=== PATIENT | female | born 1945 | race Caucasian/White ===

== ENCOUNTER 2016-08-22 13:01 | Observation (INO) | payer MEDICARE, MEDICAID ==
[~2016-08-22] VITALS: Ht 162.6 cm; Wt 55.0 kg
[~2016-08-22 13:01] MED LIST: ADVAIR DISK1 INH; ARIPIPRAZOLE5 MG PO; BAYER ASA325 MG PO; BUSPAR10 MG PO; CLONAZEPAM1 MG PO; CYMBALTA60 MG PO; ENLYTE PO; FIORICET PO; FLEXERIL PO; GABAPENTIN300 MG PO; GLUCOPHAGE500 MG PO; HYDROCHLOROT12.5 M1 PO; LISINOP/HCTZ1 TAB PO; LORTAB 10-325 M1 TAB PO; LORTAB 5/3255 MG PO; LOTRISONE CREAM15 GM EX; LYRICA150 MG PO; NAPROSYN500 MG PO; OXYCOD-APAP1 TAB PO; PENTOXIFYLLI400 MG PO; PRILOSEC40 MG PO; PRINIVIL5 MG PO; PROVENTIL HFA INH; REQUIP4 MG PO; RESTORIL15 MG PO; SINGULAIR PO; TRAMADOL HCL50 MG PO; ULTRAM50 M1 PO; VESICARE5 MG PO; ZOCOR20 MG PO; [UNRECOGNIZED DRUG - CODE] PO
--- NOTE | 2016-08-22 13:03 | NUR ---
PT TO ROOM FO RTREATMENT IN STABLE CONDITION
[2016-08-22 13:50] LABS: HEMATOCRIT 39.4 % (37.0-47.0); HEMOGLOBIN 12.3 g/dl (12.0-16.0); IMMATURE GRANULOCYTES 0.4 % (0.0-1.0); MEAN CELL VOLUME 86.2 fL CALC (80.0-100.0); MEAN CORPUSCULAR HGB 26.9 pG CALC (26.0-32.0); MEAN CORPUSCULAR HGB CONC 31.2 g/L CALC (32.0-36.0); NEUT# 5.09 thou/uL (2.00-7.15); RED BLOOD COUNT 4.57 mill/uL (4.20-5.60); RED CELL DISTRI WIDTH 20.6 % (11.5-15.5)
--- NOTE | 2016-08-22 14:00 | NUR ---
PT RESTING ON THE STRETCHER WITH NO COMPLAINTS AT THIS ITME. PT WITH EQUAL AND NONLABORED RESP.
[2016-08-22 14:01] LABS: ALBUMIN 2.8 g/dL (3.2-5.0); ALKALINE PHOSPHATASE 137 u/l (38-126); ANION GAP 13 (6-22 (CALC)); BILIRUBIN, TOTAL 0.9 mg/dL (0.0-1.4); BUN 10 mg/dL (8-23); BUN/CREATININE RATIO 12 (12-20 (CALC)); CALCIUM 8.5 mg/dL (8.4-10.2); CARBON DIOXIDE 27 mmol/l (22-30); CHLORIDE 101 mmol/l (95-108); CREATININE 0.8 mg/dL (0.5-1.0); GFR > 60 ML/MIN (>=60 (CALC)); GFR FOR AFR.AMER. > 60 ML/MIN (>=60 (CALC)); GLUCOSE 109 mg/dL (82-115); POTASSIUM 3.7 mmol/l (3.5-5.1); SGOT/AST 28 u/l (9-36); SGPT/ALT 32 u/l (11-66); SODIUM 137 mmol/l (137-146); TOTAL PROTEIN 5.9 g/dL (6.3-8.2)
[2016-08-22 14:14] LABS: MYOGLOBIN 39 ng/mL (0 - 62)
--- NOTE | 2016-08-22 14:50 | NUR ---
IN ROOM DISCUSSING CLINICAL FINDINGS WITH PT. PT AGREES TO BE ADMITTED
[2016-08-22] MEDS ORDERED: ASPIRIN 8181 MG PO (15:16)
--- NOTE | 2016-08-22 15:43 | NUR ---
REPORT GIVEN TO MYKEL DALAL
--- NOTE | 2016-08-22 16:00 | NUR ---
IV ESTABLISHED. IVF INFUSING AND IV ABX INITIATED.
--- NOTE | 2016-08-22 16:12 | NUR ---
PT ARRIVED TO FLOOR VIA STRETCHER ACCOMPANIED BY KATLIN KIM. PT DENIES PAIN. AMBULATES INDEPENDENTLY. NO SOB NOTED. PT ORIENTED TO ROOM AND EQUIPMENT. HÉCTOR EDGAR APPLIED. TELEMETRY UNIT IN PLACE. READING OF SR 70 FROM [facility] IN ED. IS PROVIDED TO PT. 2000ML INCENTIVE VOLUME ACHIEVED, GOAL OF 2500 ML SET. PLAN OF CARE DISCUSSED. REPORTING OF CONCERNS ENCOURAGED. CALL LIGHT REVIEWED AND IN REACH. PT STATES UNDERSTANDING OF INFORMATION.
--- NOTE | 2016-08-22 16:20 | NUR ---
PT TRANSFERRED TO [facility] IN STABLE CONDITION VIA STRETCHER.
[2016-08-22 16:24] VITALS: BP 117/66
[2016-08-22 19:00] VITALS: BP 124/74
--- NOTE | 2016-08-22 19:30 | NUR ---
PATIENT RESTING IN BED AT THIS TIME. PATIENT IS AWAKE ALERT AND ORIENTEDX3. PATIENT WITH HEP LOCK TO RIGHT AC-SITE APPEARS HEALTHY AT THIS TIME. PATIENT UP TO THE BR TO VOID AND STATES THAT SHE HAD LOOSE STOOL AT HOME BEFORE COMING IN TODAY. SAFETY PRECAUTIONS REINFORCED. CALL LIGHT IN REACH. WILL CONT TO MONITOR.
--- NOTE | 2016-08-22 21:00 | NUR ---
PATIENT MEDICATED FOR PAIN WITH ULTRAM ORDERED, FOR SLEEP WITH SONATA 5MG PO, AND FOR ANXIETY WITH KLONOPIN 1MG PO. HOT PACKS GIVEN FOR UPPER BACK PAIN. CALL LIGHT IN REACH. WILL CONT TO MONITOR.
[2016-08-22 23:41] VITALS: BP 118/61
--- NOTE | 2016-08-23 | NUR ---
PATIENT RESTING IN BED AT THIS TIME-WATCHING TV AND ASKING FOR JUICE AND SNACKS. NO COMPLAINTS AT THIS TIME. CALL LIGHT IN REACH. WILL CONT TO MONITOR
[2016-08-23 03:13] VITALS: BP 137/73
--- NOTE | 2016-08-23 03:51 | NUR ---
APPEARS SLEEPING AT THIS TIME. CALL LIGHT IN REACH. WILL CONT TO MONITOR.
--- NOTE | 2016-08-23 07:00 | NUR ---
REPORT RECIEVED FROM KATLIN WYNN; PT SITTING UP IN BED; NO S/S OF DISTRESS NOTED; PT DENIES ANY PAIN AT THIS TIME; CALL LIGHTS WITHIN REACH; WILL CONTINUE TO MONITOR
[2016-08-23 08:29] VITALS: BP 141/60
--- NOTE | 2016-08-23 12:00 | NUR ---
PT AMB IN HALLS WITH STEADY GAIT; NO S/S OF DISTRESS NOTED; PT DENIES ANY PAIN AT THIS TIME; PT ENCOURAGED TO CALL FOR ANY ASSISTANCE NEEDED; TELE IN PLACE; WILL CONTINUE TO MONITOR
[2016-08-23 12:30] VITALS: BP 147/72
[2016-08-23 12:53] LABS: C-REACTIVE PROTEIN 1.1 mg/dL (0-0.9)
[2016-08-23 17:17] VITALS: BP 146/78
[2016-08-23 19:04] VITALS: BP 146/61
--- NOTE | 2016-08-23 19:24 | NUR ---
Discharge instructions given. Patient verbalizes understanding of same. Discharged in stable condition via Ambulatory to Home with family. All belongings sent with pt.
== END 2016-08-23 19:25 | disposition home or self-care (01) ==
LOC: ENPENDDIS → ED 13:01 → ED-I 15:00 → ED 15:22 → MS2 15:23
PROVIDERS: Emergency Medicine; ADMIT Internal Medicine; ATTEND Internal Medicine
DX: R07.89 Other chest pain (principal); R13.10 Dysphagia, unspecified; R63.4 Abnormal weight loss; E11.40 Type 2 diabetes mellitus with diabetic neuropathy, unspecified; E78.5 Hyperlipidemia, unspecified; G25.81 Restless legs syndrome; M19.90 Unspecified osteoarthritis, unspecified site; F41.9 Anxiety disorder, unspecified; F31.9 Bipolar disorder, unspecified; R11.0 Nausea; R06.02 Shortness of breath; R14.0 Abdominal distension (gaseous); R42 Dizziness and giddiness; Z87.891 Personal history of nicotine dependence

== ENCOUNTER 2017-02-06 13:42 | Emergency (ER) | payer MEDICARE, MEDICAID ==
[~2017-02-06] VITALS: Ht 165.1 cm; Wt 52.0 kg
[~2017-02-06 13:42] MED LIST changes: +ASPIRIN 8181 MG PO
[2017-02-06] MEDS ORDERED: PRILOSEC20 MG PO (15:28)
[2017-02-06] MEDS ORDERED: OXYCODO-APAP1 TA2 PO (15:30)
[2017-02-06] MEDS ORDERED: PERCOCET 10/31 COMBO PO (16:28)
[2017-02-06 16:36] VITALS: BP 139/71
== END 2017-02-06 16:50 | disposition home or self-care (01) ==
LOC: ED 13:42
DX: S40.012A Contusion of left shoulder, initial encounter (principal); M25.512 Pain in left shoulder; W01.0XXA Fall on same level from slipping, tripping and stumbling without subsequent striking against object, initial encounter; Y93.89 Activity, other specified; Y92.009 Unspecified place in unspecified non-institutional (private) residence as the place of occurrence of the external cause; Y99.9 Unspecified external cause status

== ENCOUNTER 2017-02-17 07:31 | Inpatient (IN) | payer MEDICARE, MEDICAID ==
[~2017-02-17] VITALS: Ht 165.1 cm; Wt 48.6 kg
[~2017-02-17 07:31] MED LIST changes: +OXYCODO-APAP1 TA2 PO; +PERCOCET 10/31 COMBO PO; +PRILOSEC20 MG PO
--- NOTE | 2017-02-17 07:35 | NUR ---
PT TO ROOM 12 VIA EMS STRETCHER.
[2017-02-17 08:20] LABS: HEMATOCRIT 37.8 % (37.0-47.0); HEMOGLOBIN 12.4 g/dl (12.0-16.0); IMMATURE GRANULOCYTES 1.6 % (0.0-1.0); MEAN CELL VOLUME 98.2 fL CALC (80.0-100.0); MEAN CORPUSCULAR HGB 32.2 pG CALC (26.0-32.0); MEAN CORPUSCULAR HGB CONC 32.8 g/L CALC (32.0-36.0); NEUT# 8.91 thou/uL (2.00-7.15); RED BLOOD COUNT 3.85 mill/uL (4.20-5.60); RED CELL DISTRI WIDTH 15.9 % (11.5-15.5)
--- NOTE | 2017-02-17 08:30 | NUR ---
PT REPOSITIONS SELF ON STRETCHER. O2 PLACED BY RT. 2L/M VIA NC. SATS 100%
[2017-02-17 08:32] LABS: INTERNATIONAL NORMALIZED RATIO 1.1 RATIO (0.7-1.3); PROTHROMBIN TIME 11.8 SECONDS (9.0-12.5)
[2017-02-17 08:35] LABS: ANION GAP 11 (6-22 (CALC)); BUN 7 mg/dL (8-23); BUN/CREATININE RATIO 13 (12-20 (CALC)); CALCIUM 8.5 mg/dL (8.4-10.2); CARBON DIOXIDE 27 mmol/l (22-30); CHLORIDE 102 mmol/l (95-108); CREATININE 0.5 mg/dL (0.5-1.0); GFR > 60 ML/MIN (>=60 (CALC)); GFR FOR AFR.AMER. > 60 ML/MIN (>=60 (CALC)); GLUCOSE 117 mg/dL (82-115); POTASSIUM 3.3 mmol/l (3.5-5.1); SODIUM 137 mmol/l (137-146)
[2017-02-17 08:44] LABS: INFLUENZA A NONE DETECTED (NONE DETECT); INFLUENZA B NONE DETECTED (NONE DETECT)
--- NOTE | 2017-02-17 09:12 | NUR ---
SBAR PRINTED TO FLOOR
--- NOTE | 2017-02-17 09:34 | NUR ---
REPORT CALLED TO SHAYNA NURSE ON [facility].
--- NOTE | 2017-02-17 09:47 | NUR ---
PT ARRIVED FROM ER VIA STRETCHER ACCOMPANIED BY STAFF. IV SITE IS FREE FROM REDNESS OR EDEMA. TELE MONITOR IN PLACE.
--- NOTE | 2017-02-17 09:49 | NUR ---
PT TO MEDSURG VIA STRETCHER ON IV FLUIDS O2 2L/M VIA NC. SITE HEALTHY.
[2017-02-17 10:16] VITALS: BP 106/61
--- NOTE | 2017-02-17 10:30 | NUR ---
ASSESSMENT IS COMPLETED: BREATH SOUNDS ARE DIMINSHED AND CLEAR. O2 @ 2LITERS WITH NC. IV SITE IS FREE FROM REDNESS OR EDEMA. TELE MONITOR IN PLACE. ABD IS DISTENDED AND SOFT. PT IS WANTING TO EAT AND HAVE COFFEE.
--- NOTE | 2017-02-17 12:04 | NUR ---
Vancomycin consult Age: 71 years Weight: 48.6 kg Height: 165.1 cm Gender: Female SCR: 1 mg/dl (0.5 mg/dl rounded up) Dosing weight: 48.6 kg IBW: 57.00 kg CRCL (ml/min): 40.7 Ray (hr-1): 0.038 Half-life (hrs): 18.24 Vd (liters): 34.02 (factor: 0.7 L/kg) Vancomycin 1000 mg Q24H to produce a predicted peak of 47 mcg/ml and a predicted trough of 19 mcg/ml based on (Population-based pharmacokinetic analysis).
[2017-02-17 12:27] VITALS: BP 100/59
--- NOTE | 2017-02-17 12:30 | NUR ---
PT WENT TO HAVE CT SCAN COMPLETED: TOLERATED WELL. IV SITE IS FREE FROM REDNESS OR EDEMA. CONTINUE TO OSBERVE AND MONITOR.
--- NOTE | 2017-02-17 13:15 | NUR ---
PT IS VISITING WITH FAMILY NO DISTRESS NOTED. IV SITE IS FREE FROM REDNESS OR EDEMA.
[2017-02-17 15:10] VITALS: BP 80/50
--- NOTE | 2017-02-17 15:27 | NUR ---
PT BP WAS LOW AND WAS TAKEN MANUALLY WELL. NURSE WAS NOTIFIED.
--- NOTE | 2017-02-17 17:00 | NUR ---
PT IS RELAXING IN BED HAS RESTLESS LEG , NO DISTRESS NOTED.IV SITE IS FREE FROM REDNESS OR EDEMA. CONTINUE TO OBSERVE AND MONITOR.
[2017-02-17 19:20] VITALS: BP 87/51
--- NOTE | 2017-02-17 20:00 | NUR ---
PT SITTING UP IN BED WATCHING TV. PT IS ALERT AND ORIENTED X3. PERRLA. RESP ARE EVEN AND UNALBORED. LUNGS ARE DIMINSHED IN THE BASES. TELE IN PLACE. HR REGULAR. PULSES PALPABLE THROUGHOUT. NO EDEMA NOTED. BS ACTIVE. #22 LFA NS @100ML/HR INFUSING.NO REDNESS OR EDEMA NOTED AT SITE. WILL CONTINUE TO MONITOR.
--- NOTE | 2017-02-18 | NUR ---
PT SITTING UP ON SIDE OF BED. RESP ARE EVEN AND UNLABORED. NO CHANGE IN PT STATUS. WILL CONTINUE TO MONITOR
[2017-02-18 00:25] VITALS: BP 82/51
[2017-02-18 04:00] VITALS: BP 92/51
--- NOTE | 2017-02-18 04:45 | NUR ---
PT SITTING UP IN BED WATCHING TV. RESP ARE EVEN AND UNLABORED. NO CHANGE IN PT STATUS. WILL CONTINUE TO MONITOR
[2017-02-18 06:06] LABS: HEMATOCRIT 34.5 % (37.0-47.0); IMMATURE GRANULOCYTES 2.5 % (0.0-1.0); MEAN CELL VOLUME 100.9 fL CALC (80.0-100.0); MEAN CORPUSCULAR HGB 32.2 pG CALC (26.0-32.0); MEAN CORPUSCULAR HGB CONC 31.9 g/L CALC (32.0-36.0); NEUT# 6.83 thou/uL (2.00-7.15); RED BLOOD COUNT 3.42 mill/uL (4.20-5.60); RED CELL DISTRI WIDTH 15.9 % (11.5-15.5)
[2017-02-18 06:21] LABS: ANION GAP 11 (6-22 (CALC)); BUN 4 mg/dL (8-23); BUN/CREATININE RATIO 8 (12-20 (CALC)); CALCIUM 7.9 mg/dL (8.4-10.2); CARBON DIOXIDE 25 mmol/l (22-30); CHLORIDE 108 mmol/l (95-108); CREATININE 0.6 mg/dL (0.5-1.0); GFR > 60 ML/MIN (>=60 (CALC)); GFR FOR AFR.AMER. > 60 ML/MIN (>=60 (CALC)); GLUCOSE 76 mg/dL (82-115); POTASSIUM 3.8 mmol/l (3.5-5.1); SODIUM 140 mmol/l (137-146)
--- NOTE | 2017-02-18 07:00 | NUR ---
REPORT RECIEVED FROM KATLIN OLIVERA. PT ASLEEP ON ENTRY. NO SIGNS OF DISTRESS. RESP EVEN AND UNLABORED. IV SIGHT PATENT. TELE IN PLACE. SAFETY PRECAUTIONS IN PLACE. CALL LIGHT WITHIN REACH. WILL CONTINUE TO MONITOR.
[2017-02-18 09:10] VITALS: BP 111/69
[2017-02-18 11:28] VITALS: BP 98/63
[2017-02-18] MEDS ORDERED: ROPINIROLE4 MG PO (13:11)
[2017-02-18] MEDS ORDERED: TEMAZEPAM30 MG PO (13:11)
[2017-02-18] MEDS ORDERED: MUCUS RELIEF1200 MG PO (13:13)
[2017-02-18] MEDS ORDERED: PROAIR HFA108 MCG/AC IN (13:15)
[2017-02-18] MEDS ORDERED: LYRICA150 MG PO (13:15)
[2017-02-18] MEDS ORDERED: CLONAZEPAM2 MG PO (13:17)
--- NOTE | 2017-02-18 14:45 | NUR ---
PT RESTING IN BED WITH FAMILY MEMBERS AT BEDSIDE. TELE IN PLACE. IV PATENT AND SITE HAS NO INFLAMMATION OR REDNESS. WILL CONTINUE TO MONITOR. CALL LIGHT WITHIN REACH.
[2017-02-18 15:20] VITALS: BP 103/61
[2017-02-18 19:00] VITALS: BP 170/84; BP 99/50
--- NOTE | 2017-02-18 19:34 | NUR ---
REPORT GIVEN TO KATLIN HENRY. NO CHANGE IN PT CONDITON. CALL LIGHT WITHIN REACH.
--- NOTE | 2017-02-18 20:36 | NUR ---
OOB TO BSC, HAVING LARGE LOOSE BM, ASSISTED WITH SARAH CARE, STEADY GAIT. A/O X3, RESPIRATIONS EVEN AND UNLABORED. DENIES PAIN. MAGNESIUM INFUSING TO LFA WITH NO COMPLICATIONS. CALL LIGHT IN REACH, WILL CONTINUE TO MONITOR.
[2017-02-19] VITALS (7 sets, daily range): BP systolic 99–120; BP diastolic 56–72
--- NOTE | 2017-02-19 00:34 | NUR ---
C/O GENERALIZED PAIN AND DRY COUGH, MEDICATED WITH PERCOCET AND ROBITUSSIN AT THIS TIME. ZOSYN SPIKED AND INFUSING TO RFA WITH NO COMPLICATIONS. CALL LIGHT IN REACH.
--- NOTE | 2017-02-19 05:54 | NUR ---
ELADIA PROVIDED FOR COUGH AT THIS TIME, DENIES PAIN. IV FLUIDS INFUSING TO LFA WITH NO COMPLICAITONS.
[2017-02-19 06:11] LABS: HEMATOCRIT 32.3 % (37.0-47.0); HEMOGLOBIN 10.4 g/dl (12.0-16.0); IMMATURE GRANULOCYTES 1.8 % (0.0-1.0); MEAN CELL VOLUME 100.3 fL CALC (80.0-100.0); MEAN CORPUSCULAR HGB 32.3 pG CALC (26.0-32.0); MEAN CORPUSCULAR HGB CONC 32.2 g/L CALC (32.0-36.0); NEUT# 4.48 thou/uL (2.00-7.15); RED BLOOD COUNT 3.22 mill/uL (4.20-5.60); RED CELL DISTRI WIDTH 15.9 % (11.5-15.5)
[2017-02-19 06:26] LABS: ANION GAP 9 (6-22 (CALC)); BUN 3 mg/dL (8-23); BUN/CREATININE RATIO 6 (12-20 (CALC)); CALCIUM 7.5 mg/dL (8.4-10.2); CARBON DIOXIDE 23 mmol/l (22-30); CHLORIDE 113 mmol/l (95-108); CREATININE 0.5 mg/dL (0.5-1.0); GFR > 60 ML/MIN (>=60 (CALC)); GFR FOR AFR.AMER. > 60 ML/MIN (>=60 (CALC)); GLUCOSE 86 mg/dL (82-115); MAGNESIUM 2.1 mg/dL (1.6-2.3); POTASSIUM 3.7 mmol/l (3.5-5.1); SODIUM 141 mmol/l (137-146)
--- NOTE | 2017-02-19 07:00 | NUR ---
REPORT RECIEVED FROM GEE PALAFOX. PT ASLEEP ON ENTRY. RESP EVEN AND UNLABORED. NO SIGNS OF DISTRESS. IV SITE PATENT, NO REDNESS OR INFLAMATION NOTED. SAFETY PRECAUTIONS IN PLACE. CALL LIGHT WITHIN REACH. WILL CONTINUE TO MONITOR.
--- NOTE | 2017-02-19 14:27 | NUR ---
PPD ADMINISTERED TO LEFT FOREARM. SITE COVERED WITH BAND-AID. PT INSTRUCTED NOT TO RUB OR ITCH SITE.
--- NOTE | 2017-02-19 19:00 | NUR ---
REPORT GIVEN TO GEE PALAFOX. NO ACUTE CHANGES IN PT CONDITION. CALL LIGHT WITHIN REACH.
--- NOTE | 2017-02-19 20:45 | NUR ---
PT IN BED A/O X3, RESPIRATIONS EVEN AND UNLABORED. C/O DRY COUGH AND LEFT SHOULDER PAIN, MEDICATED WITH PERCOCET AND ROBITUSSIN AT THIS TIME. NS INFUSING TO LFA AT 100CC/HR. TELE IN PLACE. WILL CONTINUE TO MONITOR.
--- NOTE | 2017-02-19 21:00 | NUR ---
OUT OF ROOM AMBULATING IN HALLWAY WITH JOSE ROBERTO DE LA CRUZ, PT HOLDING ON TO IV POLE.
[2017-02-20 00:10] VITALS: BP 158/85
--- NOTE | 2017-02-20 00:13 | NUR ---
ZOSYN INFUSING WITH NO COMPLICATIONS, PT STATES "I CANT SLEEP PROVABLY CAUSE I'M HUNGRY", PROVIDED WITH SANDWICH.
[2017-02-20 04:27] VITALS: BP 117/57
--- NOTE | 2017-02-20 06:21 | NUR ---
SITTING ON SIDE OF BED, VOICES NO CONCERNS.
[2017-02-20 06:36] LABS: HEMOGLOBIN 11.1 g/dl (12.0-16.0); IMMATURE GRANULOCYTES 1.1 % (0.0-1.0); MEAN CELL VOLUME 101.7 fL CALC (80.0-100.0); MEAN CORPUSCULAR HGB 32.3 pG CALC (26.0-32.0); MEAN CORPUSCULAR HGB CONC 31.7 g/L CALC (32.0-36.0); NEUT# 5.09 thou/uL (2.00-7.15); RED BLOOD COUNT 3.44 mill/uL (4.20-5.60); RED CELL DISTRI WIDTH 16.1 % (11.5-15.5)
[2017-02-20 06:48] LABS: ANION GAP 12 (6-22 (CALC)); BUN 3 mg/dL (8-23); BUN/CREATININE RATIO 6 (12-20 (CALC)); CALCIUM 7.8 mg/dL (8.4-10.2); CARBON DIOXIDE 24 mmol/l (22-30); CHLORIDE 111 mmol/l (95-108); CREATININE 0.6 mg/dL (0.5-1.0); GFR > 60 ML/MIN (>=60 (CALC)); GFR FOR AFR.AMER. > 60 ML/MIN (>=60 (CALC)); GLUCOSE 83 mg/dL (82-115); MAGNESIUM 1.6 mg/dL (1.6-2.3); POTASSIUM 3.9 mmol/l (3.5-5.1); SODIUM 143 mmol/l (137-146)
--- NOTE | 2017-02-20 07:15 | NUR ---
REPORT RECEIVED FROM GEE PALAFOX. PT SITTING ON SIDE OF BED. DENIES PAIN. REPORTING OF CONCERNS ENCOURAGED. PLAN OF CARE DISCUSSED. CALL LIGHT REVIEWED AND IN REACH. PT STATES UNDERSTANDING.
[2017-02-20 08:14] VITALS: BP 133/50
--- NOTE | 2017-02-20 10:04 | NUR ---
RIGHT CHEST PORT ACCESSED USING STERILE TECHNIQUE. POSITIVE BLOOD RETURN. FLUSHED PER PROTOCOL AND IVF RESUMED.
--- NOTE | 2017-02-20 10:12 | NUR ---
PATIENT RESTING IN BED, STATES SHE AMB PUSHING IV POLE 3 TIMES LAST EVENING WITH SUPERVISION. SUPINE TO SIT TO STAND INDEP WITH SBA TO RW FOR GT X 15 MIN. AMB > 300 FEET SAFELY WITH 2WW AND SBA WITH IV POLE ASSIST ONLY. NO LOB OR NEED FOR REST THROUGHOUT AMB. STAND TO SIT IN RECLINER INDEP WITH GOOD HAND PLACEMENT AND SAFETY AWARENESS. CALL WEEMS AND TRAY TABLE W/I REACH.
--- NOTE | 2017-02-20 10:52 | NUR ---
Vancomycin single level analysis: Current dose being given: 1000 mg Current dosing interval: 24 hrs Current infusion time (hrs): 2 Single level Trough Data: Trough level obtained: 6 mcg/ml Timing of trough - Number of hours before next dose: 0.08 Hrs Recommendations: Give Vancomycin 750 mg q 12 hrs. Infuse over 2 hrs NEXT TROUGH 02/22/17 @[id number] Thank you for the consult, will continue to follow. Signature: RADHA NELSOND
[2017-02-20 11:17] VITALS: BP 99/54
--- NOTE | 2017-02-20 11:32 | NUR ---
PT AMBUALTING IN ROOM. DAUGHTER PRESENT. PT TOLERATING ACITIVTY WELL.
[2017-02-20 15:14] VITALS: BP 95/57
--- NOTE | 2017-02-20 16:38 | NUR ---
PT SLEEPING IN BED. CALL LIGHT WITHIN REACH.
[2017-02-20 19:20] VITALS: BP 116/66
--- NOTE | 2017-02-20 21:00 | NUR ---
PT RESTING AT BEDSIDE WATCHING TV;PT REQUESTS PERCOCET 1 MAXO, TO BE NOTIFIED OF REQUEST;ASSESSMENT COMPLETED;RIGHT CHEST PORT INFUSING NS @ 100ML/HR WELL;DRY COUGH NOTED;SKIN INTACT BUT REDDENED BUTTOCK NOTED;RESPIRATIONS EVEN AND UNLABORED ON RA;PT DENIES ANY OTHER NEEDS AT THIS TIME;COMMODE AT BEDSIDE;SAFETY PRECAUTIONS REINFORCED;PT EDUCATED TO CALL FOR ASSISTANCE IF NEEDED;CALL LIGHT IN REACH;WILL CONTINUE TO MONITOR
--- NOTE | 2017-02-20 22:00 | NUR ---
PT MEDICATED WITH PERCOCET 1 COMBO FOR BACK AND LEFT SHOULDER PAIN RATING 9/10 ON THE PAIN SCALE;PT REPOSITIONED IN BED;WILL CONTINUE TO MONITOR
[2017-02-21 00:20] VITALS: BP 122/71
--- NOTE | 2017-02-21 00:35 | NUR ---
PT APPEARS TO BE SLEEPING WITH EYES CLOSED;WOKE PT TO ADMINISTER SCHEDULED MEDICATION;RESPIRATIONS EVEN AND UNLABORED ON RA;PT VOICES NO COMPLAINTS OR CONCERNS OF PAIN AT THIS TIME;CALL LIGHT IN REACH;WILL CONTINUE TO MONITOR
[2017-02-21 04:10] VITALS: BP 109/45
[2017-02-21 04:43] LABS: HEMATOCRIT 36.5 % (37.0-47.0); HEMOGLOBIN 11.6 g/dl (12.0-16.0); IMMATURE GRANULOCYTES 0.7 % (0.0-1.0); MEAN CELL VOLUME 100.8 fL CALC (80.0-100.0); MEAN CORPUSCULAR HGB CONC 31.8 g/L CALC (32.0-36.0); NEUT# 7.31 thou/uL (2.00-7.15); RED BLOOD COUNT 3.62 mill/uL (4.20-5.60)
[2017-02-21 05:05] LABS: ANION GAP 10 (6-22 (CALC)); BUN 2 mg/dL (8-23); BUN/CREATININE RATIO 5 (12-20 (CALC)); CALCIUM 8.1 mg/dL (8.4-10.2); CARBON DIOXIDE 25 mmol/l (22-30); CHLORIDE 111 mmol/l (95-108); CREATININE 0.5 mg/dL (0.5-1.0); GFR > 60 ML/MIN (>=60 (CALC)); GFR FOR AFR.AMER. > 60 ML/MIN (>=60 (CALC)); GLUCOSE 83 mg/dL (82-115); MAGNESIUM 1.5 mg/dL (1.6-2.3); POTASSIUM 4.3 mmol/l (3.5-5.1); SODIUM 141 mmol/l (137-146)
--- NOTE | 2017-02-21 05:30 | NUR ---
PT APPEARS TO BE SLEEPING WITH EYES CLOSED AT THIS TIME;NO S/S OF DISTRESS NOTED;RESPIRATIONS EVEN AND UNLABORED ON RA;TELE MONITOR IN PLACE;IV FLUIDS INFUSING WELL TO RIGHT CHEST PORT;CALL LIGHT IN REACH;WILL CONTINUE TO MONITOR
[2017-02-21 07:45] VITALS: BP 134/58
--- NOTE | 2017-02-21 07:50 | NUR ---
PT AROUSED EASILY TO VERBAL STIMULI; ASSISTED WITH BREAKFAST SET UP; TELE MONITOR IN PLACE; IVF INFUSING WITHOUT DIFFICULTY; CALL WEEMS WITHIN REACH; WILL CONTINUE TO MONITOR.
--- NOTE | 2017-02-21 09:38 | NUR ---
ATTEMPTED PHYSICAL THERAPY THIS MORNING. PT DECLINED STATING THAT SHE WAS SO TIRED DUE TO LACK OF SLEEP AND CANNOT TOLERATE AMBULATION AT THIS TIME. WILL TRY AGAIN LATER.
--- NOTE | 2017-02-21 10:27 | NUR ---
PT IN LEFT SIDE; MEDICATED ORDERED FOR C/O PAIN TO BACK AND SHOULDERS; IVF INFUSING WITHOUT DIFFICULTY, TO RT SUBCLAVIAN PORT; DR. BANKS IN TO SEE PT; PLAN OF CARE DISCUSSED; CALL WEEMS WITHIN REACH; WILL CONTINUE TO MONITOR.
--- NOTE | 2017-02-21 11:16 | NUR ---
PATIENT HAS HAD A TIRING MORNING. SHE IS GONG HOME TODAY AND DOES NOT WISH TO AMB AT THIS TIME. TX HELD PENDING D/C TODAY.
[2017-02-21 11:20] VITALS: BP 97/56
--- NOTE | 2017-02-21 14:08 | NUR ---
PPD TO LEFT FOREARM READ 0 MM (zero mm), DR. DARREN CABRERA.
[2017-02-21] MEDS ORDERED: INVANZ1 GM IJ (15:10)
--- NOTE | 2017-02-21 16:00 | NUR ---
PT MEDICATED ORDERED FOR C/O LOWER BACK PAIN AND LT SHOULDER PAIN; CALL WEEMS WITHIN REACH; WILL CONTINUE TO MONITOR.
--- NOTE | 2017-02-21 17:00 | NUR ---
RT SUBCLAVIAN PORT FLUSHED PER PROTOCOL; SITE REMAINS ACCESSED D/T PT RECEIVING DAILY OUTPT IV THERAPY
--- NOTE | 2017-02-21 17:38 | NUR ---
Discharge instructions given. Patient verbalizes understanding of same. Discharged in stable condition via Wheelchair to Home with family. All belongings sent with pt.
== END 2017-02-21 17:35 | disposition home health service (06) | DRG 177 ==
LOC: ED 07:31 → ED-I 08:57 → ED 09:11 → MS2 09:12
PROVIDERS: Family Medicine; Nurse Practitioner Family; ADMIT Internal Medicine; ATTEND Internal Medicine
DX: J15.5 Pneumonia due to Escherichia coli (principal); J85.1 Abscess of lung with pneumonia; C78.89 Secondary malignant neoplasm of other digestive organs; C78.7 Secondary malignant neoplasm of liver and intrahepatic bile duct; C15.9 Malignant neoplasm of esophagus, unspecified; R64 Cachexia; G62.9 Polyneuropathy, unspecified; E83.42 Hypomagnesemia; K76.0 Fatty (change of) liver, not elsewhere classified; R04.2 Hemoptysis; Z68.1 Body mass index [BMI] 19.9 or less, adult; F31.9 Bipolar disorder, unspecified; F41.9 Anxiety disorder, unspecified; M19.90 Unspecified osteoarthritis, unspecified site; G89.29 Other chronic pain; Y95 Nosocomial condition; G25.81 Restless legs syndrome; R26.9 Unspecified abnormalities of gait and mobility; R26.89 Other abnormalities of gait and mobility; R09.02 Hypoxemia; E87.6 Hypokalemia; D64.9 Anemia, unspecified; M62.50 Muscle wasting and atrophy, not elsewhere classified, unspecified site; B96.20 Unspecified Escherichia coli [E. coli] as the cause of diseases classified elsewhere; Z66 Do not resuscitate; Z96.89 Presence of other specified functional implants; Z98.84 Bariatric surgery status; Z79.899 Other long term (current) drug therapy; Z86.73 Personal history of transient ischemic attack (TIA), and cerebral infarction without residual deficits
CPT/HCPCS: J1335; J3370; J3475; Q9967

== ENCOUNTER 2017-05-27 05:12 | Emergency (ER) | payer MEDICARE, MEDICAID ==
[~2017-05-27] VITALS: Ht 165.1 cm; Wt 40.9 kg
[~2017-05-27 05:12] MED LIST changes: +CLONAZEPAM2 MG PO; +INVANZ1 GM IJ; +MUCUS RELIEF1200 MG PO; +PROAIR HFA108 MCG/AC IN; +ROPINIROLE4 MG PO; +TEMAZEPAM30 MG PO
[2017-05-27 06:30] LABS: HEMATOCRIT 45.5 % (37.0-47.0); HEMOGLOBIN 15.4 g/dl (12.0-16.0); IMMATURE GRANULOCYTES 0.6 % (0.0-1.0); MEAN CELL VOLUME 91.9 fL CALC (80.0-100.0); MEAN CORPUSCULAR HGB 31.1 pG CALC (26.0-32.0); MEAN CORPUSCULAR HGB CONC 33.8 g/L CALC (32.0-36.0); NEUT# 18.08 thou/uL (2.00-7.15); RED BLOOD COUNT 4.95 mill/uL (4.20-5.60); RED CELL DISTRI WIDTH 14.5 % (11.5-15.5)
[2017-05-27 06:52] LABS: ALBUMIN 2.8 g/dL (3.2-5.0); ALKALINE PHOSPHATASE 430 u/l (38-126); ANION GAP 19 (6-22 (CALC)); BILIRUBIN, TOTAL 1.6 mg/dL (0.0-1.4); BUN 24 mg/dL (8-23); BUN/CREATININE RATIO 25 (12-20 (CALC)); CARBON DIOXIDE 26 mmol/l (22-30); CHLORIDE 95 mmol/l (95-108); CREATININE 0.9 mg/dL (0.5-1.0); GFR > 60 ML/MIN (>=60 (CALC)); GFR FOR AFR.AMER. > 60 ML/MIN (>=60 (CALC)); POTASSIUM 4.1 mmol/l (3.5-5.1); SGOT/AST 72 u/l (9-36); SGPT/ALT 43 u/l (11-66); SODIUM 136 mmol/l (137-146); TOTAL PROTEIN 5.9 g/dL (6.3-8.2)
[2017-05-27 06:57] LABS: AMYLASE < 30 u/l (30-110); LIPASE 16 u/l (23-300)
[2017-05-27 07:20] LABS: URINE BLOOD DIPSTICK NEGATIVE (NEGATIVE); URINE COLOR YELLOW; URINE GLUCOSE - DIPSTICK NEGATIVE (NEGATIVE); URINE KETONE TRACE mg/dL (NEGATIVE); URINE LEUK ESTERASE TRACE (NEGATIVE); URINE PROTEIN - DIPSTICK 30 mg/dL (NEG-TRACE); URINE SPECIFIC GRAVITY >=1.030
[2017-05-27 07:28] LABS: URINE BILIRUBIN - DIPSTICK TRACE (NEGATIVE); URINE CLARITY CLEAR; URINE NITRITE - DIPSTICK POSITIVE (Negative)
[2017-05-27 07:32] LABS: URINE BACTERIA MANY hpf; URINE TRICHOMONAS FEW hpf
[2017-05-27 07:33] LABS: URINE SQUAMOUS EPITHELIAL CELL FEW EPI/hpf (0-FEW)
[2017-05-27] MEDS ORDERED: VESICARE10 MG PO (08:39)
[2017-05-27] MEDS ORDERED: ROPINIROLE0.5 MG PO (08:44)
[2017-05-27] MEDS ORDERED: IMODIUM2 MG PO (08:45)
[2017-05-27] MEDS ORDERED: DUONEB IN (08:46)
[2017-05-27] MEDS ORDERED: CLONAZEPAM1 MG PO (08:46)
[2017-05-27] MEDS ORDERED: DULCOLAX10 MG RE (08:47)
[2017-05-27] MEDS ORDERED: MORPHINE O10 MG/5 ML PO (08:50)
[2017-05-27] MEDS ORDERED: PROCHLORPERAZINE5 MG PO (08:50)
[2017-05-27] MEDS ORDERED: LORAZEPAM0.5 MG PO (08:51)
[2017-05-27] MEDS ORDERED: TYLENOL650 MG RE (09:12)
[2017-05-27] MEDS ORDERED: HYOSCYAMINE0.125 MG PO (09:13)
[2017-05-27] MEDS ORDERED: HALOPERIDOL1 MG PO (09:13)
[2017-05-27] MEDS ORDERED: VENTOLIN HFA IN (09:14)
[2017-05-27] MEDS ORDERED: SENNA-TABS8.6 MG PO (09:15)
[2017-05-27] MEDS ORDERED: ZOFRAN4 MG/TAB PO (09:15)
[2017-05-27] MEDS ORDERED: PRILOSEC20 MG/CAP PO (09:16)
[2017-05-27] MEDS ORDERED: RESTORIL15 MG PO (09:16)
[2017-05-27] MEDS ORDERED: BISACODYL10 M1 RE (09:16)
[2017-05-27] MEDS ORDERED: MS CONTIN30 MG PO (09:17)
[2017-05-27] MEDS ORDERED: OXYCODONE HCL5 MG PO (09:17)
[2017-05-27] MEDS ORDERED: MAALOX ADV1 CHW PO (09:17)
[2017-05-27] MEDS ORDERED: LACTULOSE PO (09:18)
[2017-05-27] MEDS ORDERED: SEROQUEL25 MG (09:18)
[2017-05-27 10:34] VITALS: BP 150/72
== END 2017-05-27 10:34 | disposition hospice, inpatient (51) ==
LOC: ED 05:12
PROVIDERS: Emergency Medicine
DX: G89.29 Other chronic pain (principal); R10.33 Periumbilical pain; C15.9 Malignant neoplasm of esophagus, unspecified; C79.9 Secondary malignant neoplasm of unspecified site; E11.9 Type 2 diabetes mellitus without complications; J44.9 Chronic obstructive pulmonary disease, unspecified; E78.5 Hyperlipidemia, unspecified; F32.9 Major depressive disorder, single episode, unspecified; R64 Cachexia; Z51.5 Encounter for palliative care; Z98.84 Bariatric surgery status; Z86.73 Personal history of transient ischemic attack (TIA), and cerebral infarction without residual deficits